=== PATIENT | female | born 1965 | race Caucasian/White ===

== ENCOUNTER 2018-10-19 12:20 | Observation (INO) ==
--- NOTE | 2018-10-19 13:19 | XRay Report ---
XR chest 1V portable CLINICAL HISTORY: 53 years-old Female presenting with chest pain. TECHNIQUE: Portable upright AP view of the chest was obtained. COMPARISON: None. FINDINGS: Cardiomediastinal silhouette normal. No focal opacity. No large effusion or pneumothorax. Osseous str uctures normal. Upper abdomen normal. IMPRESSION: 1. No acute cardiopulmonary disease. Electronically signed by: Simone Lisa M.D. 10/19/2018 1:18 PM
[2018-10-19 13:31] LABS: Basophils # (auto) 0.05 K/uL (0-0.2); Basophils % (auto) 0.5 %; Eosinophils # (auto) 0.12 K/uL (0-0.5); Eosinophils % (auto) 1.2 %; Hematocrit (blood only) 44.1 % (37-47); Hemoglobin 15.4 g/dL (12.0-16.0); Immature Granulocytes # (auto) 0.02 K/uL (0.00-0.02); Immature Granulocytes % (auto) 0.2 %; Lymphocytes # (auto) 1.96 K/uL (1.2-3.4); Lymphocytes % (auto) 19.3 %; Mean Corpuscular Hgb Conc 34.9 g/dL (32-36); Mean Corpuscular Volume 91.7 fL (80-100); Mean Platelet Volume 8.9 fL (7.4-10.4); Monocytes % (auto) 4.9 %; Neutrophils # (auto) 7.51 K/uL (1.4-6.5); Neutrophils % (auto) 73.9 %; Platelet Count 331 K/uL (130-400); RDW Coefficient of Variation 12.8 % (11.5-14.5); RDW Standard Deviation 42.9 fL (36.4-46.3); Red Blood Count 4.81 M/uL (4.2-5.4); White Blood Count 10.16 K/uL (4.8-10.8)
[2018-10-19 13:47] LABS: Alanine Aminotransferase 19 U/L (12-78); Aspartate Aminotransferase 14 U/L (15-37); BUN Creatinine Ratio 12.8 (10-20); Blood Urea Nitrogen 13 mg/dl (7-18); Calcium 9.2 mg/dl (8.5-10.1); Carbon Dioxide 28 mmol/L (21-32); Chloride 105 mmol/L (98-107); Creatinine Clr Calc Pharmacy 54.4 ml/min; Est GFR (African American) 69.7; Est GFR (Non-African American) 60.2; Glucose 85 mg/dl (70-99); Magnesium 2.6 mg/dl (1.8-2.4); Potassium 3.6 mmol/L (3.5-5.1); Sodium 140 mmol/L (136-145)
[2018-10-19 13:57] LABS: Albumin Globulin Ratio 1.1 (0.9-2); Alkaline Phosphatase 95 U/L (45-117); Bilirubin,Total 0.4 mg/dl (0.2-1); Globulin 3.7 gm/dl (2.5-4.0); NT Pro B Type Natriuretic Pept 132 pg/ml (0-900); Total Protein 7.7 gm/dl (6.4-8.2); Troponin I < 0.015 ng/ml (0-0.045)
[2018-10-19 14:21] LABS: Appearance Urine Clear (Clear); Bilirubin Urine Negative (Negative); Blood Urine Negative (Negative); Color Urine Yellow; Glucose Urine UA Negative (Negative); Ketones Urine Negative (Negative); Leukocyte Esterase Urine Negative (Negative); Nitrite Urine Negative (Negative); Protein Urine Negative (Negative); Specific Gravity Urine 1.009 (1.000-1.030); Urobilinogen Urine Negative (Negative); pH Urine 7.5 (4.5-7.5)
[2018-10-19] MEDS ORDERED: SOTALOL HCL 80 MG TAB PO ONE (14:31)
[2018-10-19] MEDS ORDERED: GADOBUTROL 65ML VIAL IV PRN (16:36)
--- NOTE | 2018-10-19 16:43 | Magnetic Resonance Report ---
MR angio head wo con HISTORY: Mental status change [place], dizzy, blurred vision TECHNIQUE: 3-D [id number] MRA of the brain was performed without contrast. COMPARISON STUDY: None. FINDINGS: Visualized intracranial internal carotid arteries, distal vertebral arteries, and basilar a rtery are widely patent. There is no significant stenosis, occlusion, or aneurysm seen within the winsome ateral ACAs, MCAs, or grain combine driver. IMPRESSION: No significant stenosis, occlusion, or aneurysm within the knik of [place]. The above report was generated using voice recognition software. It may contain grammatical, syntax or spelling errors. Electronically signed by: Brett Jones M.D. 10/19/2018 4:42 PM
--- NOTE | 2018-10-19 17:08 | Magnetic Resonance Report ---
MR angio neck wo/w con HISTORY: Mental status change [place], dizzy, blurred vision TECHNIQUE: Multiaxial CT angiography of the neck was performed IV contrast: None. All measurem ents were calculated based on NASCET criteria. Maximum intensity projection images were also obtaine d. A dose lowering technique was utilized adhering to the principles of ALARA. COMPARISON STUDY: None. FINDINGS: The aortic arch and proximal great vessels are widely patent. There is no significant sten osis, occlusion, or dissection identified within the bilateral common carotid, internal carotid, or v ertebral arteries. IMPRESSION: No significant stenosis, occlusion, or dissection identified within the carotid or vertebral arteries . The above report was generated using voice recognition software. It may contain grammatical, syntax or spelling errors. Electronically signed by: Brett Jones M.D. 10/19/2018 5:07 PM
--- NOTE | 2018-10-19 17:12 | Magnetic Resonance Report ---
Brain MRI WITH AND WITHOUT CONTRAST HISTORY: Headache, dizzy, blurred vision, fatigue TECHNIQUE: Multiplanar multisequence MRI of the brain was performed both before and after the intrave nous administration of contrast. COMPARISON STUDY: None. FINDINGS: There are no areas of restricted diffusion to suggest acute infarction. The midline structu res are intact. The paranasal sinuses are clear. The mastoid air cells are clear. The ventricles and sulci are within normal limits for age. There is no mass, hematoma, midline shift. The major vascular flow-voids at the skull base are well maintained. Postcontrast sequences show no areas of abnormal e nhancement. There are few scattered punctate foci of T2 hyperintensity within the white matter of the supratentorial brain. These favor minimal microvascular ischemic change and are of doubtful clinical significance. IMPRESSION: No acute intracranial abnormality. Electronically signed by: Chema Santiago M.D. 10/19/2018 5:11 PM
[2018-10-19] MEDS ORDERED: FAMOTIDINE 20MG/5ML IV PUSH IV STA (17:41)
[2018-10-19] MEDS ORDERED: ALUMINUM/MAGNESIUM SUSP 30 ML UDC PO STA (17:41)
[2018-10-19] MEDS ORDERED: LORazepam 0.5 MG/1 ML VIAL IV STA (17:41)
[2018-10-19 18:00] LABS: T3 Free 2.65 pg/ml (2.3-4.2); T3 Total 0.76 ng/ml (0.60-1.81)
[2018-10-19] MEDS ORDERED: SODIUM CHLORIDE 0.9% 1000ML 1,000 ML IV ONE (18:07)
--- NOTE | 2018-10-19 18:21 | Emergency Department Note ---
Entered by Mal Valentin acting as a scribe for Nuzhat Wiseman DO History of Present Illness General Chief complaint: Cardiac Assessment Stated complaint: ANXIETY ATTACKS, NO ENERGY Time Seen by Provider: 10/19/18 12:28 Source: patient Limitations: no limitations History of Present Illness Provider complaint: Anxiety attacks Onset (ago): month(s) (1) Location: head (anxiety) Pain Consistency: + other (worsening) Maximum Pain Intensity: 2 Quality: + other (Anxiety, chest pain ) Associated symptoms: + other (Dizziness, "motor skills off," burning in spine. ) Treatments prior to arrival: other (Added Hydroxyzine) The patient is a 53 year old female who presents to the Emergency Room with complaints of worsening anxiety and "severe panic attacks" for the past month. The patient states that she has a history of anxiety, which was well controlled for over 30 years. She notes that she was recently started on Hydroxyzine and had her other anxiety medication dosages increased, but notes that she is still having "severe anxiety" even with this new medication. When these anxiety attacks onset they are accompanied by chest pain and "lightheaded and dizzy" sensations, but she has a difficult time figuring out which onsets first. The lightheaded and dizzy feelings will onset randomly, even when she is not having a panic attack. The patient continues to complain of intermittent "burning" pain in her spine as well as random episodes of her "motor skills being off." These symptoms began at roughly the same time as the worsening anxiety. She describes the difficulty with motor sensation as having a hard time walking normally at work. The patient also provides that she had en episode in August, 2 months ago where she experienced vision irregularities in the left eye. Home Medications Home Medications Medication Instructions Recorded Confirmed Type atenolol 12.5 mg PO QAM 10/19/18 10/19/18 History atenolol 25 mg PO QPM 10/19/18 10/19/18 History nortriptyline [Pamelor] 50 mg PO BID 10/19/18 10/19/18 History alprazolam [Xanax] 0.25 mg PO TID PRN #20 tab 10/20/18 Rx Allergies Allergy/AdvReac Type Severity Reaction Status Date / Time No Known Allergies Allergy Unverified 10/19/18 12:50 Past Med/Surg History Medical History Anxiety (Acute) Hypoglycemia Normal colonoscopy Surgical History H/O laparoscopy Social History Preferred Language: Citizen Of [place] Beliefs That Will Affect Care: None Current Living Situation: Spouse and Other current occupational status: employed Other Information That Helps Us Care for You: No Feels Safe at Home: Yes Safety Concerns: Feels Safe At This Time Smoking Status: Never smoker Hx Alcohol Use: Yes Hx Substance Use: No Review of Systems See HPI for pertinent positives & negatives. and A total of 10 systems reviewed and were otherwise negative Physical Exam Vital Signs Vital Signs - 24 hr 10/19/18 12:20 10/19/18 12:24 10/19/18 14:00 Temperature 36.6 C Temperature Source Oral Sepsis Recent Fever Within 48 Hours No Sepsis New/Unexplained Change in Mental Status No Sepsis Action Taken by Nursing No Action Required Pulse Rate 70 Pulse Rate from SpO2 Sensor Respiratory Rate 20 Respiratory Effort / Characteristics Non-Labored Spontaneous Respiratory Depth Respiratory Pattern Blood Pressure 166/94 H Blood Pressure [Right Arm] 162/100 H Blood Pressure Mean 118 Blood Pressure Mean [Right Arm] 120 Blood Pressure Position Sitting Blood Pressure Position [Right Arm] Lying Pulse Oximetry 99 Oxygen Delivery Method Room Air Room Air 10/19/18 14:20 10/19/18 17:06 10/19/18 17:33 Temperature Temperature Source Sepsis Recent Fever Within 48 Hours Sepsis New/Unexplained Change in Mental Status Sepsis Action Taken by Nursing Pulse Rate 65 64 Pulse Rate from SpO2 Sensor 66 65 Respiratory Rate 16 18 16 Respiratory Effort / Characteristics Non-Labored Spontaneous Respiratory Depth Normal Respiratory Pattern Regular Blood Pressure 149/86 H Blood Pressure [Right Arm] Blood Pressure Mean 107 Blood Pressure Mean [Right Arm] Blood Pressure Position Blood Pressure Position [Right Arm] Pulse Oximetry 100 100 Oxygen Delivery Method Room Air 10/19/18 17:38 10/19/18 17:40 10/19/18 17:50 Temperature Temperature Source Sepsis Recent Fever Within 48 Hours Sepsis New/Unexplained Change in Mental Status Sepsis Action Taken by Nursing Pulse Rate 60 60 62 Pulse Rate from SpO2 Sensor 61 61 62 Respiratory Rate 16 15 11 L Respiratory Effort / Characteristics Respiratory Depth Respiratory Pattern Blood Pressure 166/95 H Blood Pressure [Right Arm] Blood Pressure Mean 118 Blood Pressure Mean [Right Arm] Blood Pressure Position Blood Pressure Position [Right Arm] Pulse Oximetry 100 99 100 Oxygen Delivery Method 10/19/18 18:00 03/08/19 18:01 10/19/18 18:10 Temperature Temperature Source Sepsis Recent Fever Within 48 Hours Sepsis New/Unexplained Change in Mental Status Sepsis Action Taken by Nursing Pulse Rate 67 64 59 L Pulse Rate from SpO2 Sensor 67 64 59 L Respiratory Rate 16 13 17 Respiratory Effort / Characteristics Respiratory Depth Respiratory Pattern Blood Pressure 167/94 H Blood Pressure [Right Arm] Blood Pressure Mean 118 Blood Pressure Mean [Right Arm] Blood Pressure Position Blood Pressure Position [Right Arm] Pulse Oximetry 98 100 98 Oxygen Delivery Method 10/19/18 18:20 10/19/18 18:30 10/19/18 18:40 Temperature Temperature Source Sepsis Recent Fever Within 48 Hours Sepsis New/Unexplained Change in Mental Status Sepsis Action Taken by Nursing Pulse Rate 58 L 59 L 62 Pulse Rate from SpO2 Sensor 58 L 59 L 61 Respiratory Rate 12 16 17 Respiratory Effort / Characteristics Respiratory Depth Respiratory Pattern Blood Pressure 155/86 H Blood Pressure [Right Arm] Blood Pressure Mean 109 Blood Pressure Mean [Right Arm] Blood Pressure Position Blood Pressure Position [Right Arm] Pulse Oximetry 100 100 97 Oxygen Delivery Method 10/19/18 18:41 Temperature Temperature Source Sepsis Recent Fever Within 48 Hours Sepsis New/Unexplained Change in Mental Status Sepsis Action Taken by Nursing Pulse Rate 59 L Pulse Rate from SpO2 Sensor 59 L Respiratory Rate 17 Respiratory Effort / Characteristics Respiratory Depth Respiratory Pattern Blood Pressure Blood Pressure [Right Arm] Blood Pressure Mean Blood Pressure Mean [Right Arm] Blood Pressure Position Blood Pressure Position [Right Arm] Pulse Oximetry 100 Oxygen Delivery Method GENERAL: alert, well appearing, well nourished, no distress, non-toxic EYE EXAM: normal conjunctiva, PERRL and EOM's grossly intact OROPHARYNX: no exudate, no erythema, lips, buccal mucosa, and tongue normal and mucous membranes are moist NECK: supple, no nuchal rigidity, no adenopathy, non-tender, FROM, no bruit LUNGS: Clear to auscultation. Normal chest wall mechanics, no w/r/r HEART: no murmurs, S1 normal and S2 normal ABDOMEN: abdomen soft, non-tender, normo-active bowel sounds, no masses, no rebound or guarding. BACK: Back is symmetrical on inspection and there is no deformity, no midline tenderness, no CVA tenderness. SKIN: no rashes and no bruising UPPER EXTREMITIES: upper extremities are grossly normal. FROM, nml pulses b/l, nml sensory exam b/l. LOWER EXTREMITIES: No pitting edema. FROM, nml pulses b/l. NEURO EXAM: Normal sensorium, cranial nerves II-XII grossly intact, normal speech, no gross weakness of arms, no gross weakness of legs. No facial droop, no ataxia. Course 1229: Past medical records reviewed. The patient was evaluated in room A12B, and a complete history and physical examination were performed. 1235: Prior records reviewed. The patient had a Dobutamine Stress echo performed which was terminated due to fatigue but was otherwise negative. The LVEG was 60%. No valve abnormalities shown. 1459: I updated the Charge Nurse on patient receiving a medication in error. 1740: I updated the patient on results. I disclosed to patient the medication error and discussed adverse reactions. She is asyptomatic at this time. BP is stable. Understood need for additional time on monitor. 1800: After discussion with charge nurse, employment evaluator/case manager, and hospital shell shop supervisor, we discussed that patient would benefit from being admitted for observation as a precaution. I discussed this at bedside with the patient given that the half- life of the medication is 12 hours and she would need to be watched until at least 2 in the morning and we felt this was a safer option for her. She is in agreement with this plan. 1835: Case discussed with Shadia Baeza of the hospitalist service for admission. Consultations Consultation #1: Case discussed with Shadia Baeza of the hospitalist service for admission. Time: 18:35 Administered Medications Discontinued Medications Al Hydrox/Mg Hydrox/Simethicone (Maalox) 15 ml PO NOW STA Stop: 10/19/18 17:42 Last Admin: 10/19/18 17:53 Dose: 15 ml Documented by: [id number] Alprazolam (Xanax) 0.25 mg PO Q8H PRN PRN Reason: Anxiety Stop: 11/19/18 11:15 Last Admin: 10/20/18 11:56 Dose: 0.25 mg Documented by: [id number] Atenolol (Tenormin) 12.5 mg PO QAM [facility] Stop: 11/19/18 11:29 Last Admin: 10/20/18 11:56 Dose: 12.5 mg Documented by: [id number] Famotidine (Pepcid 20mg Iv Push) 20 mg IV ONE STA Stop: 10/19/18 17:42 Last Admin: 10/19/18 17:54 Dose: 20 mg Documented by: [id number] Gadobutrol (Gadavist 65ml) 6 ml IV ONCE PRN PRN Reason: Interaction Checking Stop: 10/23/18 16:35 Last Admin: 10/19/18 16:36 Dose: 6 ml Documented by: [id number] Lorazepam (Ativan) 0.5 mg in 1 mls @ 1 mls/min IV NOW STA Stop: 10/19/18 17:42 Last Admin: 10/19/18 17:53 Dose: 1 mls/min Documented by: [id number] Sodium Chloride (Nss 1000ml) 1,000 mls @ 999 mls/hr IV .[id number] ONE Stop: 10/19/18 19:07 Last Infusion: 10/19/18 20:25 Dose: 0 mls/hr Documented by: [id number] Admin: 10/19/18 18:46 Dose: 999 mls/hr Documented by: [id number] Sodium Chloride (Nss 1000ml) 1,000 mls @ 75 mls/hr IV .[id number] LUIZ Stop: 10/20/18 07:00 Last Infusion: 10/20/18 10:51 Dose: 0 mls/hr Documented by: [id number] Admin: 10/19/18 22:15 Dose: 75 mls/hr Documented by: [id number] Nortriptyline HCl (Pamelor) 50 mg PO BID LUIZ Stop: 11/19/18 11:29 Last Admin: 10/20/18 11:56 Dose: 50 mg Documented by: [id number] Sotalol HCl (Betapace) 40 mg PO NOW ONE Stop: 10/19/18 14:32 Last Admin: 10/19/18 14:44 Dose: 40 mg Documented by: [id number] Medical Decision Making Differential Diagnosis Differential diagnosis: Etiologies such as benign positional vertigo, labrynthitis, dehydration, hypovolemia, anemia, tumor, infection, hypoglycemia, electrolyte abnormalities, cardiac sources, toxicological sources, central neurologic process, as well as others were entertained. Medical Records Attestation: I reviewed the patient's medical records. Home Medications Current Medication List: was personally reviewed by me Laboratory Data Attestation: I reviewed the patient's lab results. Result diagrams: 10/20/18 06:27 10/20/18 06:27 Lab Results 10/19/18 10/19/18 10/19/18 Range/Units 13:15 13:15 13:15 WBC 10.16 (4.8-10.8) K/uL RBC 4.81 (4.2-5.4) M/uL Hgb 15.4 (12.0-16.0) g/dL Hct 44.1 (37-47) % MCV 91.7 (80-100) fL MCH 32.0 (25-34) pg MCHC 34.9 (32-36) g/dL RDW Std Deviation 42.9 (36.4-46.3) fL RDW Coeff of Arlene 12.8 (11.5-14.5) % Plt Count 331 (130-400) K/uL MPV 8.9 (7.4-10.4) fL Immature Gran % (Auto) 0.2 % Neut % (Auto) 73.9 % Lymph % (Auto) 19.3 % Gray % (Auto) 4.9 % Eos % (Auto) 1.2 % Baso % (Auto) 0.5 % Immature Gran # (Auto) 0.02 (0.00-0.02) K/uL Neut # (Auto) 7.51 H (1.4-6.5) K/uL Lymph # (Auto) 1.96 (1.2-3.4) K/uL Gray # (Auto) 0.50 (0.11-0.59) K/uL Eos # (Auto) 0.12 (0-0.5) K/uL Baso # (Auto) 0.05 (0-0.2) K/uL Sodium 140 (136-145) mmol/L Potassium 3.6 (3.5-5.1) mmol/L Chloride 105 (98-107) mmol/L Carbon Dioxide 28 (21-32) mmol/L Anion Gap 7.0 (3-11) BUN 13 (7-18) mg/dl Creatinine 1.05 (0.6-1.2) mg/dl Est Cr Clr Drug Dosing 54.4 ml/min Est GFR ( Amer) 69.7 Est GFR (Non-Af Amer) 60.2 BUN/Creatinine Ratio 12.8 (10-20) Glucose 85 (70-99) mg/dl Calcium 9.2 (8.5-10.1) mg/dl Magnesium 2.6 H (1.8-2.4) mg/dl Total Bilirubin 0.4 (0.2-1) mg/dl AST 14 L (15-37) U/L ALT 19 (12-78) U/L Alkaline Phosphatase 95 (45-117) U/L Troponin I < 0.015 (0-0.045) ng/ml NT-Pro-B Natriuret Pep 132 (0-900) pg/ml Total Protein 7.7 (6.4-8.2) gm/dl Albumin 4.0 (3.4-5.0) gm/dl Globulin 3.7 (2.5-4.0) gm/dl Albumin/Globulin Ratio 1.1 (0.9-2) Lipase 158 (73-393) U/L TSH 7.010 H (0.300-4.500) uIu/ml Free T4 0.81 (0.8-1.6) ng/dl Free T3 (2.3-4.2) pg/ml Total T3 (0.60-1.81) ng/ml Urine Color Urine Appearance (Clear) Urine pH (4.5-7.5) Ur Specific Spar[place] (1.000-1.030) Urine Protein (Negative) Urine Glucose (UA) (Negative) Urine Ketones (Negative) Urine Blood (Negative) Urine Nitrite (Negative) Urine Bilirubin (Negative) Urine Urobilinogen (Negative) Ur Leukocyte Esterase (Negative) 10/19/18 10/19/18 10/20/18 Range/Units 13:15 13:55 06:27 WBC 8.58 (4.8-10.8) K/uL RBC 4.45 (4.2-5.4) M/uL Hgb 14.3 (12.0-16.0) g/dL Hct 41.4 (37-47) % MCV 93.0 (80-100) fL MCH 32.1 (25-34) pg MCHC 34.5 (32-36) g/dL RDW Std Deviation 44.5 (36.4-46.3) fL RDW Coeff of Arlene 13.1 (11.5-14.5) % Plt Count 305 (130-400) K/uL MPV 9.2 (7.4-10.4) fL Immature Gran % (Auto) 0.2 % Neut % (Auto) 55.8 % Lymph % (Auto) 33.9 % Gray % (Auto) 6.5 % Eos % (Auto) 2.9 % Baso % (Auto) 0.7 % Immature Gran # (Auto) 0.02 (0.00-0.02) K/uL Neut # (Auto) 4.78 (1.4-6.5) K/uL Lymph # (Auto) 2.91 (1.2-3.4) K/uL Gray # (Auto) 0.56 (0.11-0.59) K/uL Eos # (Auto) 0.25 (0-0.5) K/uL Baso # (Auto) 0.06 (0-0.2) K/uL Sodium (136-145) mmol/L Potassium (3.5-5.1) mmol/L Chloride (98-107) mmol/L Carbon Dioxide (21-32) mmol/L Anion Gap (3-11) BUN (7-18) mg/dl Creatinine (0.6-1.2) mg/dl Est Cr Clr Drug Dosing ml/min Est GFR ( Amer) Est GFR (Non-Af Amer) BUN/Creatinine Ratio (10-20) Glucose (70-99) mg/dl Calcium (8.5-10.1) mg/dl Magnesium (1.8-2.4) mg/dl Total Bilirubin (0.2-1) mg/dl AST (15-37) U/L ALT (12-78) U/L Alkaline Phosphatase (45-117) U/L Troponin I (0-0.045) ng/ml NT-Pro-B Natriuret Pep (0-900) pg/ml Total Protein (6.4-8.2) gm/dl Albumin (3.4-5.0) gm/dl Globulin (2.5-4.0) gm/dl Albumin/Globulin Ratio (0.9-2) Lipase (73-393) U/L TSH (0.300-4.500) uIu/ml Free T4 (0.8-1.6) ng/dl Free T3 2.65 (2.3-4.2) pg/ml Total T3 0.76 (0.60-1.81) ng/ml Urine Color Yellow Urine Appearance Clear (Clear) Urine pH 7.5 (4.5-7.5) Ur Specific [place] 1.009 (1.000-1.030) Urine Protein Negative (Negative) Urine Glucose (UA) Negative (Negative) Urine Ketones Negative (Negative) Urine Blood Negative (Negative) Urine Nitrite Negative (Negative) Urine Bilirubin Negative (Negative) Urine Urobilinogen Negative (Negative) Ur Leukocyte Esterase Negative (Negative) 10/20/18 Range/Units 06:27 WBC (4.8-10.8) K/uL RBC (4.2-5.4) M/uL Hgb (12.0-16.0) g/dL Hct (37-47) % MCV (80-100) fL MCH (25-34) pg MCHC (32-36) g/dL RDW Std Deviation (36.4-46.3) fL RDW Coeff of Arlene (11.5-14.5) % Plt Count (130-400) K/uL MPV (7.4-10.4) fL Immature Gran % (Auto) % Neut % (Auto) % Lymph % (Auto) % Gray % (Auto) % Eos % (Auto) % Baso % (Auto) % Immature Gran # (Auto) (0.00-0.02) K/uL Neut # (Auto) (1.4-6.5) K/uL Lymph # (Auto) (1.2-3.4) K/uL Gray # (Auto) (0.11-0.59) K/uL Eos # (Auto) (0-0.5) K/uL Baso # (Auto) (0-0.2) K/uL Sodium 141 (136-145) mmol/L Potassium 3.7 (3.5-5.1) mmol/L Chloride 109 H (98-107) mmol/L Carbon Dioxide 28 (21-32) mmol/L Anion Gap 4.0 (3-11) BUN 11 (7-18) mg/dl Creatinine 0.99 (0.6-1.2) mg/dl Est Cr Clr Drug Dosing 57.6 ml/min Est GFR ( Amer) 74.9 Est GFR (Non-Af Amer) 64.6 BUN/Creatinine Ratio 11.1 (10-20) Glucose 81 (70-99) mg/dl Calcium 7.6 L D (8.5-10.1) mg/dl Magnesium 2.4 (1.8-2.4) mg/dl Total Bilirubin (0.2-1) mg/dl AST (15-37) U/L ALT (12-78) U/L Alkaline Phosphatase (45-117) U/L Troponin I (0-0.045) ng/ml NT-Pro-B Natriuret Pep (0-900) pg/ml Total Protein (6.4-8.2) gm/dl Albumin (3.4-5.0) gm/dl Globulin (2.5-4.0) gm/dl Albumin/Globulin Ratio (0.9-2) Lipase (73-393) U/L TSH (0.300-4.500) uIu/ml Free T4 (0.8-1.6) ng/dl Free T3 (2.3-4.2) pg/ml Total T3 (0.60-1.81) ng/ml Urine Color Urine Appearance (Clear) Urine pH (4.5-7.5) Ur Specific Sparks (1.000-1.030) Urine Protein (Negative) Urine Glucose (UA) (Negative) Urine Ketones (Negative) Urine Blood (Negative) Urine Nitrite (Negative) Urine Bilirubin (Negative) Urine Urobilinogen (Negative) Ur Leukocyte Esterase (Negative) Imaging Data Attestation: I personally reviewed and interpreted this imaging study as follows: Radiologist's Impression: MR angio neck wo/w con HISTORY: Mental status change [place], dizzy, blurred vision TECHNIQUE: Multiaxial CT angiography of the neck was performed IV contrast: None. All measurements were calculated based on NASCET criteria. Maximum intensity projection images were also obtained. A dose lowering technique was utilized adhering to the principles of ALARA. COMPARISON STUDY: None. FINDINGS: The aortic arch and proximal great vessels are widely patent. There is no significant stenosis, occlusion, or dissection identified within the bilateral common carotid, internal carotid, or vertebral arteries. IMPRESSION: No significant stenosis, occlusion, or dissection identified within the carotid or vertebral arteries. The above report was generated using voice recognition software. It may contain grammatical, syntax or spelling errors. Electronically signed by: Brett Jones M.D. 10/19/2018 5:07 PM MR angio head wo con HISTORY: Mental status change [place], dizzy, blurred vision TECHNIQUE: 3-D [id number] MRA of the brain was performed without contrast. COMPARISON STUDY: None. FINDINGS: Visualized intracranial internal carotid arteries, distal vertebral arteries, and basilar artery are widely patent. There is no significant stenosis, occlusion, or aneurysm seen within the bilateral ACAs, MCAs, or finish repair worker. IMPRESSION: No significant stenosis, occlusion, or aneurysm within the [place]. The above report was generated using voice recognition software. It may contain grammatical, syntax or spelling errors. Electronically signed by: Brett Jones M.D. 10/19/2018 4:42 PM Brain MRI WITH AND WITHOUT CONTRAST HISTORY: Headache, dizzy, blurred vision, fatigue TECHNIQUE: Multiplanar multisequence MRI of the brain was performed both before and after the intravenous administration of contrast. COMPARISON STUDY: None. FINDINGS: There are no areas of restricted diffusion to suggest acute infarction. The midline structures are intact. The paranasal sinuses are clear. The mastoid air cells are clear. The ventricles and sulci are within normal limits for age. There is no mass, hematoma, midline shift. The major vascular flow-voids at the skull base are well maintained. Postcontrast sequences show no areas of abnormal enhancement. There are few scattered punctate foci of T2 hyperintensity within the white matter of the supratentorial brain. These favor minimal microvascular ischemic change and are of doubtful clinical significance. IMPRESSION: No acute intracranial abnormality. Electronically signed by: Chema Santiago M.D. 10/19/2018 5:11 PM XR chest 1V portable CLINICAL HISTORY: 53 years-old Female presenting with chest pain. TECHNIQUE: Portable upright AP view of the chest was obtained. COMPARISON: None. FINDINGS: Cardiomediastinal silhouette normal. No focal opacity. No large effusion or pneumothorax. Osseous structures normal. Upper abdomen normal. IMPRESSION: 1. No acute cardiopulmonary disease. Electronically signed by: Simone Lisa M.D. 10/19/2018 1:18 PM ECG Data Attestation: I personally reviewed and interpreted this ECG as follows: Indication: chest pain Rate (beats per minute): 69 Rhythm: normal sinus Findings: no PVC, no ST depression, no ST elevation and no ectopy Comparison ECG Date: from (10/15/2018) Additional Comments: Repeat EKG at 1839, sinus bradycardia at 58, normal axis and normal intervals including a QTC of 441, no ectopy, no other acute ischemic changes. Blood Pressure Blood Pressure Findings: Elevated blood pressure Blood Pressure Disposition: further management by hospitalist YARIEL Sin Patient here well-appearing and very anxious. Patient with atypical symptoms over the course of the last month. Patient was previously sent for cardiac evaluation and had a negative dobutamine stress echo performed recently as an outpatient. Patient still with atypical intermittent symptoms which also include blurred vision, dizziness, and headaches. Because of the recent negative cardiac evaluation and these other persistent accounting symptoms, patient sent for MRI. Patient's labs and imaging here was all reassuring. Patient does have a prior history of thyroid dysfunction that she was aware of and this was only mildly abnormal TSH of 7. I did add on T3 and T4, but advised her she would need continued follow-up with us. Patient stated she had already called to make an appointment with an aircraft riveter. Pt was accidentally given a medication in error. Patient was asymptomatic while in the emergency room even through the peak of the medication effects. No change in EKG, no hypotension. This did however add to the patient's anxieties. Given the half- life of the medication is 12 hours we felt patient should be watched as a precaution. Given situation, charge nurse Ammon discussed the case with the hospital shell shop supervisor and mattress spring encaser in the ER who recommended admission as a precaution. Patient was in agreement with this plan, and stated that she felt it would help due to her anxiety now regarding the situation. Patient did feel improved with a dose of Ativan here. I do feel patient likely has contributing generalized anxiety and would benefit from adjustment of occasion related to anxiety. I do not suspect patient will have any adverse reaction to the other medication. Patient was hemodynamically stable being monitored in the emergency room. I do not suspect other occult infectious etiology, acute vascular pathology, ACS, no evidence of dysrhythmia while on telemetry. I did discuss with her possible need for additional evaluation regarding secondary causes of hypertension which may also be contributing to her anxiety also. Discussed with her close follow-up with her family doctor regarding the thyroid dysfunction and keeping her appointment with endocrinology. Patient and family at bedside are in agreement with plan, aware of all results and the medication error, and verbalized understanding. Impression & Plan Anxiety, Chest pain, Hypertension, Thyroid dysfunction Discharge Plan Visit Data *Final* Discharge Date/Time: 10/19/18 20:36 Chief Complaint: Cardiac Assessment Stated Complaint: ANXIETY ATTACKS, NO ENERGY ED Provider: Nuzhat Wiseman Discharge Problem: Anxiety, Chest pain, Hypertension, Thyroid dysfunction Patient Disposition: Admitted As Inpatient Condition: Good Discharge Instructions Interventions: ED Discharge Assessment Last Done: 10/19/18 20:36 Discharge Problem: Chest pain Qualifiers: Chest pain type: unspecified Qualified Code(s): R07.9 - Chest pain, unspecified Hypertension Qualifiers: Hypertension type: essential hypertension Qualified Code(s): I10 - Essential (primary) hypertension The scribe's documentation has been prepared under my direction and personally reviewed by me in its entirety. I confirm that the note above accurately reflects all work, treatment, procedures, and medical decision making performed by me.
[2018-10-19] MEDS ORDERED: LORazepam 1 MG TAB PO PRN (20:44)
[2018-10-19] MEDS ORDERED: NITROGLYCERIN SL 0.4 MG/TAB TAB SL PRN (20:44)
[2018-10-19] MEDS ORDERED: ACETAMINOPHEN 325 MG TAB PO PRN (20:44)
[2018-10-19] MEDS ORDERED: ALUMINUM/MAGNESIUM SUSP 30 ML UDC PO PRN (20:44)
[2018-10-19] MEDS ORDERED: SODIUM CHLORIDE 0.9% 1000ML 1,000 ML IV SCH (20:44)
--- NOTE | 2018-10-19 21:40 | History and Physical Report ---
DATE OF ADMISSION: 10/19/2018 CHIEF COMPLAINT: Anxiety attack. Received sotalol by accident in the ER. HISTORY OF PRESENT ILLNESS: This 53-year-old female with past medical history significant for anxiety, depression, hypertension, chronic kidney disease stage III, subclinical hypothyroidism, presents with anxiety attacks. The patient is having ongoing anxiety attacks for some time. She get chest pains with this attacks and also pain radiating to the arms. She lives with her , daughter, and grandkids. Otherwise, active but lately she has become slow and lack of energy. There are also thyroid issues. She is supposed to see an enamel finisher in December. Couple of days ago, saw cardiology for her chest pain, and had the stress test done. She did not achieved target heart rate, but it was normal study, but her blood pressure was elevated during stress test and the cardiology already had atenolol increased but after stress test cardiology also recommended to add lisinopril. She says she was not told about the results, but today again she had chest pain, so she came to the ER. In the ER, she was given Ativan and also she had loss of motor skillsduring these episodes MRI/MRA scan, was also done, which was also unremarkable,.But by mistake, the patient instead of Ativan she received sotalol and she has developed some bradycardia, so because the drug's half-life is 12 hours, plan to observe overnight and if stable, discharge in the morning. The patient is agreeable to the plan. Currently resting comfortably and hemodynamically stable. Currently, denies any chest pain or shortness of breath. No headache. No blurred vision. No earache. No nausea. No runny nose, no sore throat, no difficulty swallowing. No abdominal pain. Normal bowel and bladder movements. No rash, no easy bleeding or easy bruising. ALLERGIES: No known drug allergies. PAST MEDICAL HISTORY: As mentioned above. PAST SURGICAL HISTORY: , wide wedge resection of ovaries, ligation of the oviduct. MEDICATIONS: The patient is on aspirin 81 mg p.o. daily, atenolol 25 mg a.m. and 12.5 mg p.m., hydroxyzine 25 mg p.o. q. 6 hours p.r.n., nortriptyline 50 mg p.o. b.i.d. FAMILY HISTORY: Significant for mother has arthritis, diabetes, grandmother has breast cancer. Sister has breast cancer. Brother has diabetes and heart disorder. Sister has thyroid disorder. SOCIAL HISTORY: , lives with her , daughter and grandkids. No smoking history. No alcohol, no drug use. REVIEW OF SYMPTOMS: As per HPI. Rest of review of systems is negative. PHYSICAL EXAMINATION: GENERAL: The patient is of moderate built, not in acute distress. VITAL SIGNS: Temperature 36.6, pulse 59, respiratory 17, blood pressure 150/86, oxygen 100% room air. HEENT: No pallor, no icterus. Pupils equal, round, and react to light. NECK: No JVD, no neck masses, no carotid bruit. CARDIOVASCULAR: S1, S2 heard. Regular rate and rhythm, no murmur, no gallop. RESPIRATORY SYSTEM: Normal AP diameter. No accessory muscle use. No wheezing, no crackles. ABDOMEN: Soft, bowel sounds present. Nontender. No distention. CENTRAL NERVOUS SYSTEM: Cranial nerves II-XII grossly intact. Nonfocal. EXTREMITIES: No edema, no erythema. LABORATORIES: WBC 10.1, hemoglobin 15.4, hematocrit 44, platelets 381. Sodium 140, potassium 3.6, chloride 105, bicarbonate 28, BUN 13, creatinine 1.05. Serum glucose 85, calcium 9.2, magnesium 2.6, total bilirubin 0.4, AST 14, ALT 19, alkaline phosphatase is 95, troponin I less than 0.015. BNP 132. Lipase 158. TSH 7.01, free T4 0.8, free T3 2.6, Urinalysis negative Initial EKG was normal sinus rhythm with rate of 69, no acute ST changes seen. Chest x-ray: No acute process seen. Brain MRI, no acute intracranial abnormality. MRA of the head, no significant stenosis, occlusion, or aneurysm within the [place]. Neck MRA, no significant stenosis, occlusion or dissection identified within carotid or vertebral arteries. ASSESSMENT AND PLAN: This is a 53-year-old female who presents with of anxiety attack with chest pain and some loss of motor skills. Workup was negative so for but by accident she got sotalol, so plan to observe overnight in the hospital. 1. Panic attacks, anxiety attacks. The patient is on amitriptyline follows with family doctor. She did start on hydroxyzine but it is not working . Had stress echo a couple of days ago, which was unremarkable and the patient did not got the report and because of ongoing pains in the chest she came to the Emergency Room today and also because of some issues with motor skills when this happened. MRI head and MRA of the head and neck was done, which was unremarkable and during the process instead of Ativan she got a dose sotalol, so we are called for observation overnight. EKG showed some sinus bradycardia, but there is no QT prolongation. We will repeat EKG in the morning and if patient is stable, can be discharged in the morning and follow with her family doctor. 2. Hypertension. The patient has had atenolol 25 mg in morning and 12.5 mg night, recently increased by cardiology a couple of days ago because of high blood pressure. During the stress test also blood pressure was high and additionally the cardiology recommended adding lisinopril, which was not added. To follow up with primary care physician for blood pressure control. 3. Anxiety, depression. She is on nortriptyline and hydroxyzine, which we will hold for now as the patient has received sotalol. We will place on Ativan p.r.n. Needs followup with PCP/Psychiatry. 4. Subclinical hypothyroidism. TSH is high but T4 is normal. The patient is having some lack of energy. Also had some hypoglycemic episodes. She has appointment in endocrinology in December. 5. Deep venous thrombosis prophylaxis, sequential compression devices for now. DISPOSITION: Observation in tele floor. Expect to discharge home and follow with her family doctor. Level I full code. MTDD
[2018-10-20 07:08] LABS: Basophils # (auto) 0.06 K/uL (0-0.2); Basophils % (auto) 0.7 %; Eosinophils # (auto) 0.25 K/uL (0-0.5); Eosinophils % (auto) 2.9 %; Hematocrit (blood only) 41.4 % (37-47); Hemoglobin 14.3 g/dL (12.0-16.0); Immature Granulocytes # (auto) 0.02 K/uL (0.00-0.02); Immature Granulocytes % (auto) 0.2 %; Lymphocytes # (auto) 2.91 K/uL (1.2-3.4); Lymphocytes % (auto) 33.9 %; Mean Corpuscular Hgb Conc 34.5 g/dL (32-36); Mean Platelet Volume 9.2 fL (7.4-10.4); Monocytes # (auto) 0.56 K/uL (0.11-0.59); Monocytes % (auto) 6.5 %; Neutrophils # (auto) 4.78 K/uL (1.4-6.5); Neutrophils % (auto) 55.8 %; Platelet Count 305 K/uL (130-400); RDW Coefficient of Variation 13.1 % (11.5-14.5); RDW Standard Deviation 44.5 fL (36.4-46.3); Red Blood Count 4.45 M/uL (4.2-5.4); White Blood Count 8.58 K/uL (4.8-10.8)
[2018-10-20 07:33] LABS: BUN Creatinine Ratio 11.1 (10-20); Calcium 7.6 mg/dl (8.5-10.1); Creatinine Clr Calc Pharmacy 57.6 ml/min; Est GFR (African American) 74.9; Est GFR (Non-African American) 64.6; Magnesium 2.4 mg/dl (1.8-2.4); Potassium 3.7 mmol/L (3.5-5.1)
--- NOTE | 2018-10-20 09:37 | Discharge Summary ---
Date of Service October 20, 2018 Admission HPI Per Admitting Provider 53-year-old female with past medical history significant for anxiety, depression, hypertension, chronic kidney disease stage III, subclinical hypothyroidism, presents with anxiety attacks. The patient is having ongoing anxiety attacks for some time. She get chest pains with this attacks and also pain radiating to the arms. She lives with her , daughter, and grandkids. Otherwise, active but lately she has become slow and lack of energy. There are also thyroid issues. She is supposed to see an assembler and tester electronics in December. Couple of days ago, saw cardiology for her chest pain, and had the stress test done. She did not achieved target heart rate, but it was normal study, but her blood pressure was elevated during stress test and the cardiology already had atenolol increased but after stress test cardiology also recommended to add lisinopril. She says she was not told about the results, but today again she had chest pain, so she came to the ER. In the ER, she was given Ativan and also she had loss of motor skillsduring these episodes MRI/MRA scan, was also done, which was also unremarkable,.But by mistake, the patient instead of Ativan she received sotalol and she has developed some bradycardia, so because the drug's half-life is 12 hours, plan to observe overnight and if stable, discharge in the morning. The patient is agreeable to the plan. Currently resting comfortably and hemodynamically stable. Currently, denies any chest pain or shortness of breath. No headache. No blurred vision. No earache. No nausea. No runny nose, no sore throat, no difficulty swallowing. No abdominal pain. Normal bowel and bladder movements. No rash, no easy bleeding or easy bruising. Admission Exam Per Admitting Provider PHYSICAL EXAMINATION: GENERAL: The patient is of moderate built, not in acute distress. VITAL SIGNS: Temperature 36.6, pulse 59, respiratory 17, blood pressure 150/86, oxygen 100% room air. HEENT: No pallor, no icterus. Pupils equal, round, and react to light. NECK: No JVD, no neck masses, no carotid bruit. CARDIOVASCULAR: S1, S2 heard. Regular rate and rhythm, no murmur, no gallop. RESPIRATORY SYSTEM: Normal AP diameter. No accessory muscle use. No wheezing, no crackles. ABDOMEN: Soft, bowel sounds present. Nontender. No distention. CENTRAL NERVOUS SYSTEM: Cranial nerves II-XII grossly intact. Nonfocal. EXTREMITIES: No edema, no erythema. Principal Diagnosis CP from panic Drug error-Ativan and Sotolol Thyroid Dysfunction Discharge Exam ROS-No Headache, No Visual Changes, No Nausea, No Vomiting, No Fever, No Chills, No Neck Pain or Stiffness, No Chest Pain, No Palpitations, No SOB, No JACQUES, No Cough, No Sputum, No Wheezing, No Abdominal Pain, No Diarrhea, No Hematemesis, No Hemoptysis, No Unexpected Weight Loss, No Flank pain, No Melena, No Hematoch ezia, No Frequency, No Urgency, No Burning, No Hematuria, No Rashes, No Diaphoresis. Appetite is Normal Physical Exam Gen-AAO x 3, NAD, Afebrile Head-NCAT, EOMI, PERRLA, Anicteric Sclera, No Posterior Pharyngeal Erythema Neck-Supple, No JVD, No Thyromegaly, No Masses, No LAD, No Bruits Lungs-Clear to Auscultation Bilaterally, No Rales, No Rhonchi, No Wheezing, No Crepitus Chest-No S4, +S1, +S2, No S3, No Murmurs, No Rubs, No Gallops, No Ectopy Abdomen-Soft, Bowel Sounds Present, Non Tender, Non Distended, No Hepatomegaly, No Splenomegaly, No Palpable Masses, No Rebound, No Rigidity, No Guarding Musculoskeletal-Full Range of Motion Bilaterally, No CVAT Extremities-No Cyanosis, No Clubbing, No Edema Nuero-Cranial Nerves II-XII grossly intact, Motor WNL, DTRs WNL, Strength WNL, Non Focal Psych-Normal Mood Discharge Data Allergies Allergy/AdvReac Type Severity Reaction Status Date / Time No Known Allergies Allergy Unverified 10/19/18 12:50 Consultations 10/19/18 18:42 ED Decision to Admit Stat Ordered Studies 10/19/18 13:02 MR angio head wo con All MRs and CXR are negative MR angio neck wo/w con MR brain wo/w con Allergies No Known Allergies Allergy (Unverified 10/19/18 12:50) Height/Weight/Isolation Height 5 ft 2 in Weight 65.2 kg Chemistry 03/08/19 03/09/19 13:15 06:27 Sodium 140 141 Potassium 3.6 3.7 Chloride 105 109 H Carbon Dioxide 28 28 Anion Gap 7.0 4.0 BUN 13 11 Creatinine 1.05 0.99 Glucose 85 81 Urinalysis 10/19/18 13:55 Urine Color Yellow Urine Appearance Clear Urine pH 7.5 Ur Specific [place] 1.009 Urine Protein Negative Urine Glucose (UA) Negative Urine Ketones Negative Urine Blood Negative Urine Nitrite Negative Urine Bilirubin Negative Hospital Course (1) Chest pain: Workup negative, DC home today, was observed overnight secondary to medication (2) Panic attack: Resolved (3) Hypertension: Controlled (4) Thyroid dysfunction: TSH elevated but thyroid function tests are all normal (5) Anxiety: Resolved (6) Medication administered in error: Patient aware medication error, no adverse effects noted she may go home today. Total Time Total Time Spent Total Time Spent (In Minutes): 35 mins Total Time Includes: Examination of the Patient, Discharge Planning, Medication Reconciliation and Communication With Other Providers Discharge Plan Discharge Items Patient Disposition: Home - Self-Care Reason For Visit: PANIC ATTACK, CHEST PAIN Discharge Diagnosis: Panic CP Condition: Good Discharge Goals: Decrease discomfort Activity: Resume your previous activity Lifting: None Bathing: No limitations Sexual Activity: When tolerated Driving/Machine Use: No limitations Weightbearing: Left weightbearing and Right weightbearing Non-emergency contact: Primary Care Provider Call non-emergency contact if: you have any medication questions Follow-up/Referrals: Michael Plata MD [Primary Care Provider] - Diet: Regular Addtl Provider Instructions: Routine follow-up as needed Prescriptions: Continued atenolol 25 mg Tablet 12.5 mg PO QAM RF: 0 atenolol 25 mg Tablet 25 mg PO QPM RF: 0 hydroxyzine HCl 25 mg Tablet 25 mg PO Q6H PRN (Reason: Anxiety) RF: 0 nortriptyline [Pamelor] 50 mg Capsule 50 mg PO BID RF: 0 Stand-Alone Forms: [email or web address] Discharge Orders: Discharge Order (Routine); Ordered 10/20/18 Ordered By: Sree Wilson Admission Data Admit Date/Time: 10/19/18 19:47 Attending Provider: Sree Wilson Admit Provider: Gen Cannon Primary Care Provider: Micahel Plata Other Providers: Gen Cannon Service: Telemetry
[2018-10-20] MEDS ORDERED: ALPRAZolam 0.25 MG TABLET PO PRN (11:16)
[2018-10-20] MEDS ORDERED: NORTRIPTYLINE HCL 25 MG CAP PO SCH (11:30)
[2018-10-20] MEDS ORDERED: ATENOLOL 25 MG TABLET PO SCH ×2 (11:30→21:00)
== END 2018-10-20 12:20 | disposition home or self-care (01) ==
LOC: 2S 12:20 → ED 12:20 → 2S 20:36